=== PATIENT | female | born 1965 | race Caucasian/White ===

== ENCOUNTER → 2016-05-25 | Outpatient (CLI) | payer MEDICAID ==
[~2016-05-25] MED LIST: CHLORPHENIRAMINE PO; CIPRO 500MG TA500 MG PO; CLONAZEPAM PO; DESYREL 50MG50 MG PO; HYDROCODONE PO; LEXAPRO; LORTAB 5/500 501 TAB PO; LORTAB 7.5/5001 TAB PO; METRONIDAZOLE500 MG PO; NORCO 325 MG-51 TAB PO; PHENERGAN 25 TA25 MG PO; PREMPRO 0.625/21 TAB PO; TORADOL 10MG TA10 MG PO; TRAZODO50 MG PO; ZITHROMAX Z PA250 MG PO; ZOFRAN 4MG T4 MG/TAB PO
== END ==
LOC: MC.RAD 08:49
DX: Z12.31 Encounter for screening mammogram for malignant neoplasm of breast (principal)

== ENCOUNTER → 2019-03-13 | Outpatient (CLI) | payer OTHER | LOC: MC.RAD 09:11 | DX: Z12.31 Encounter for screening mammogram for malignant neoplasm of breast (principal) ==

== ENCOUNTER → 2023-04-05 | Outpatient (CLI) | payer OTHER | LOC: MC.RAD 15:50 | DX: Z12.31 Encounter for screening mammogram for malignant neoplasm of breast (principal) ==

== ENCOUNTER 2023-07-02 15:46 | Emergency (ER) | payer SELFPAY ==
[~2023-07-02] VITALS: Ht 152.4 cm; Wt 73.6 kg
[2023-07-02 15:58] VITALS: TEMP 98.1
[2023-07-02] MEDS ORDERED: Lisinopril 10 MG TAB PO ONE ×3 (17:45→19:45)
[2023-07-02] MEDS ORDERED: PRINIVIL10 MG PO (19:18)
[2023-07-02 19:36] VITALS: BP 162/84; PULSE 62
== END 2023-07-02 19:36 | disposition home or self-care (01) ==
LOC: COL.ER 15:46
DX: I10 Essential (primary) hypertension (principal)